=== PATIENT | female | born 1985 | race Caucasian/White ===

== ENCOUNTER 2022-02-06 14:53 | Emergency (ER) | payer SELFPAY ==
[2022-02-06] MEDS ORDERED: Ketorolac Tromethamine 30 MG/ML VIAL ONE (16:15)
== END 2022-02-06 16:20 | disposition home or self-care (01) ==
LOC: CSHERS 14:53
DX: S29.012A Strain of muscle and tendon of back wall of thorax, initial encounter (principal); M54.14 Radiculopathy, thoracic region; X58.XXXA Exposure to other specified factors, initial encounter
CPT/HCPCS: 96372; 99283; J1885

== ENCOUNTER 2023-08-08 13:26 | Emergency (ER) | payer SELFPAY | END 2023-08-08 14:24 | disposition home or self-care (01) | LOC: CSHERS 13:26 | DX: R05.9 Cough, unspecified (principal) | CPT/HCPCS: 99283 ==